=== PATIENT | female | born 1985 | race Caucasian/White ===

== ENCOUNTER 2017-06-07 02:16 | Emergency (ER) | payer SELFPAY ==
[2017-06-07] MEDS ORDERED: Ketorolac Tromethamine 30 MG/ML VIAL ONE (02:36)
[2017-06-07] MEDS ORDERED: Ondansetron HCl/PF 4 MG/2 ML Vial ONE (02:36)
[2017-06-07 03:15] LABS: #Basophils 0.1 thou/uL (0.0-0.2); #Eosinphils 0.3 thou/uL (0.0-0.7); #Lymphocytes 3.7 thou/uL (1.20-3.40); #Neutrophils 9.1 thou/uL (1.40-6.50); %Basophils 0.7 % (0.0-1.0); %Eosinophils 2.2 % (0.0-10.0); %Lymphocytes 25.9 % (21.0-51.0); Hematocrit 44.5 % (36.0-47.0); Mean Platelet Volume 7.2 fL (7.4-10.4); Red Blood Cell (RBC) Count 4.59 mill/uL (4.20-5.40); White Blood Cell (WBC) Count 14.2 thou/uL (4.8-10.8)
[2017-06-07 03:22] LABS: ALT (SGPT) 24 U/L (8-55); AST (SGOT) 11 U/L (5-34); Alkaline Phosphatase 86 U/L (40-150); Anion Gap 12 mmol/L (10-20); BUN (Urea Nitrogen) 19 mg/dL (7.0-18.7); Bilirubin, Total 0.3 mg/dL (0.2-1.2); Calc. Creatinine Clearance 0 mL/min (70-130); Calcium 9.6 mg/dL (7.8-10.44); Carbon Dioxide 21 mmol/L (22-29); Chloride 109 mmol/L (98-107); Estimated GFR-MDRD 75; Globulin 3.1 g/dL (2.4-3.5); Lipase 26 U/L (8-78); Protein, Total 7.2 g/dL (6.0-8.3)
--- NOTE | 2017-06-07 08:05 | CT ---
PRELIMINARY REPORT/[facility]/EMERGENCY AFTER HOURS PROCEDURE: EXAM: CT Abdomen and Pelvis Without Intravenous Contrast EXAM DATE/TIME: Exam ordered 06/07/2017 3:23 AM CLINICAL HISTORY: 32 years old, female; Pain; Abdominal pain; Generalized TECHNIQUE: Axial computed tomography images of the abdomen and pelvis without intravenous contrast. Coronal reformatted images were created and reviewed. COMPARISON: No relevant prior studies available. FINDINGS: Lower thorax: The visualized portions of the lung bases are normal. ABDOMEN: Liver: There are no focal liver lesions present. Gallbladder and bile ducts: Multiple calcified gallstones are present. No ductal dilation. Pancreas: The pancreas is normal. No ductal dilation. Spleen: The spleen is normal. Adrenals: The adrenal glands are normal. Kidneys and ureters: The kidneys are normal. No obstructing stones. No hydronephrosis. Stomach and bowel: The stomach is normal. No obstruction. No mucosal thickening. Appendix: No findings to suggest acute appendicitis. PELVIS: Bladder: The bladder is normal. No stones. Reproductive: The uterus is normal. ABDOMEN and PELVIS: Intraperitoneal space: Normal. No free air. No significant fluid collection. Bones/joints: No acute fracture. No dislocation. Soft tissues: There is a 7.8 cm periumbilical hernia containing inflamed fat. Vasculature: Normal. No abdominal aortic aneurysm. Lymph nodes: Normal. No enlarged lymph nodes. IMPRESSION: 1. There is a 7.8 cm periumbilical hernia containing inflamed fat. 2. Cholelithiasis. Thank you for allowing us to participate in the care of your patient. Dictated and Authenticated by: Justin Dai MD 06/07/2017 4:06 AM Central Time ([place] \T\ [place]) FINAL REPORT EMERGENT AFTER HOURS REPORT CT ABDOMEN AND PELVIS WITHOUT CONTRAST FINDINGS/IMPRESSION: I agree with the findings and impression given in the preliminary report per [facility] physician. 1. Cholelithiasis. 2. Incarcerated umbilical hernia. POS: [facility]
== END 2017-06-07 04:10 | disposition home or self-care (01) ==
LOC: ERS 02:16
DX: K42.9 Umbilical hernia without obstruction or gangrene (principal); B20 Human immunodeficiency virus [HIV] disease
CPT/HCPCS: 36415; 74176; 80053; 83690; 84703; 85025; 96361; 96374; 96375; J1885; J2270; J2405

== ENCOUNTER 2017-07-05 08:56 | Day surgery (SDC) | payer MEDICAID ==
[2017-07-03 10:32] VITALS: BMI 44.8
[2017-07-05] MEDS ORDERED: Ketorolac Tromethamine 30 MG/ML VIAL ONE (09:26)
[2017-07-05] MEDS ORDERED: CEFAZOLIN/Water 2 GM/20 ML SYRINGE ONE (09:26)
[2017-07-05] MEDS ORDERED: Scopolamine 1.5 mg/72 hour Patch ONE (09:52)
[2017-07-05] MEDS ORDERED: Bupivacaine/Epinephrine 0.25% 30 ML VIAL ONE (10:22)
[2017-07-05] MEDS ORDERED: Fentanyl 100 MCG/2 ML VIAL ONE ×4 (10:52→14:08)
[2017-07-05] MEDS ORDERED: Glycopyrrolate 0.2 MG/ML 5 ML SYRINGE ONE (11:28)
[2017-07-05] MEDS ORDERED: Lidocaine 1% PF 5 ML VIAL ONE (11:28)
[2017-07-05] MEDS ORDERED: PHENYLEPHRINE-NS 100 MCG/ML 10 ML SYRINGE ONE (11:28)
[2017-07-05] MEDS ORDERED: Ondansetron HCl/PF 4 MG/2 ML Vial ONE (11:28)
[2017-07-05] MEDS ORDERED: Propofol 200 MG/20 ML VIAL ONE ×2 (11:28)
[2017-07-05] MEDS ORDERED: Dexamethasone 20 MG/5 ML VIAL ONE (11:28)
[2017-07-05] MEDS ORDERED: Promethazine HCl 25 MG/ML VIAL ONE (13:49)
[2017-07-05] MEDS ORDERED: MORPHINE 10 MG/ML SYRINGE ONE (13:56)
[2017-07-05] MEDS ORDERED: Morphine 4 MG/ML VIAL ONE ×2 (13:57→15:38)
[2017-07-05] MEDS ORDERED: Ondansetron HCl/PF 4 MG/2 ML Vial IVP PRN (14:05)
[2017-07-05] MEDS ORDERED: Morphine 4 MG/ML Carpuject SLOW IVP PRN (14:05)
[2017-07-05] MEDS ORDERED: Promethazine HCl 25 MG/ML VIAL IM/IV PRN (14:05)
[2017-07-05] MEDS ORDERED: HYDROcodone/Acetaminophen 5/325 mg Tablet ONE (17:01)
--- NOTE | 2017-07-08 10:16 | OP ---
DATE OF PROCEDURE: 07/05/2017 PREOPERATIVE DIAGNOSES: Umbilical hernia and gallstones. POSTOPERATIVE DIAGNOSES: Umbilical hernia and gallstones with multiple ventral incisional hernias. HISTORY: Ms. Guerrero is a 32-year-old woman with a symptomatic umbilical hernia. She was also noted to have gallstones with symptoms of biliary colic. The recommendation was made to proceed with laparoscopic cholecystectomy and umbilical hernia repair. PROCEDURE: After informed consent was obtained and appropriate preoperative antibiotics were administered, the patient was taken to the operating room where she was placed in the supine position and general endotracheal anesthesia was administered. She was prepped and draped in the standard sterile fashion and a circumumbilical incision was made. Dissection was carried down to the hernia sac which was dissected free circumferentially to the level of fascia. This was found to contain incarcerated omentum. The hernia sac was resected and the incarcerated omentum also resected and the stump dunked down into the abdomen. A trocar was placed through the umbilical defect and carbon dioxide gas insufflated to an intra-abdominal pressure of 15, which the patient tolerated well. Local anesthesia was infused to the skin and subcutaneous tissues at the epigastric, right upper quadrant, and right lateral abdominal sites. Trocars were placed under direct vision of the laparoscope and the gallbladder identified. This was slightly white walled, but without significant adhesions. The fundus was grasped and retracted superiorly. The infundibulum was grasped and retracted laterally. The serosa was stripped inferiorly and the cystic duct and artery identified and dissected free and traced to their insertion in the gallbladder. Critical view was obtained and the cystic duct and artery were clipped and divided between clips. The gallbladder was dissected free of the gallbladder bed and placed into an EndoCatch bag and drawn out through the umbilical incision. The umbilical trocar was then replaced and the lower abdomen carefully examined laparoscopically. In addition to the patient's symptomatic umbilical hernia she was noted to have multiple ventral incisional hernias in the lower midline from her scar. There were extensive omental adhesions and it was felt that repairing these would require a large piece of intraabdominal mesh which would be an unacceptably high risk for infection to place concurrently with cholecystectomy. In addition, the patient is morbidly obese with a BMI of 49 and it was felt that the chance of a durable repair was quite low in this setting and the patient had previously expressed her intentions to pursue bariatric surgery for weight loss. Therefore, the decision was made to repair the umbilical hernia primarily since a Ventralex mesh would not address the other abdominal hernias and could potentially make it more difficult to repair these in the future, especially if the patient develops a mesh infection. Therefore, the umbilical hernia was repaired with interrupted [id number] Ethibond sutures with excellent technical result. The umbilical incision was copiously irrigated and the subcutaneous tissues reapproximated with 3-0 Monocryl sutures. All of the skin incisions were then closed with 4-0 Monocryl sutures and Dermabond dressings were applied. Once the Dermabond was dry, a pressure dressing was placed to the umbilicus. The patient was extubated and taken to the recovery room in good condition. Estimated blood loss was minimal. There were no complications. SPECIMEN: Gallbladder and contents, umbilical hernia sac and incarcerated omentum. MTDD
== END 2017-07-05 17:45 | disposition home or self-care (01) ==
LOC: SDC 08:56
PROVIDERS: ATTEND Surgery
PROC: 0FT44ZZ Resection of Gallbladder, Percutaneous Endoscopic Approach (ICD-10-PCS; principal; 2017-07-05)
PROC: 0WQF0ZZ Repair Abdominal Wall, Open Approach (ICD-10-PCS; principal; 2017-07-05)
DX: K80.10 Calculus of gallbladder with chronic cholecystitis without obstruction (principal); K42.0 Umbilical hernia with obstruction, without gangrene; F17.210 Nicotine dependence, cigarettes, uncomplicated; E66.01 Morbid (severe) obesity due to excess calories; Z68.41 Body mass index [BMI] 40.0-44.9, adult; Z90.49 Acquired absence of other specified parts of digestive tract; Z90.721 Acquired absence of ovaries, unilateral
CPT/HCPCS: 88302; 88304; 96374; J0131; J1100; J1885; J2001; J2270; J2405; J2550; J2704; J3010

== ENCOUNTER 2017-09-19 11:27 | Emergency (ER) | payer MEDICAID, OTHER ==
[2017-09-19] MEDS ORDERED: Ketorolac Tromethamine 30 MG/ML VIAL ONE (13:06)
[2017-09-19] MEDS ORDERED: Acetaminophen 500 MG TAB ONE (13:06)
== END 2017-09-19 13:40 | disposition home or self-care (01) ==
LOC: ERS 11:27
DX: J11.1 Influenza due to unidentified influenza virus with other respiratory manifestations (principal); B20 Human immunodeficiency virus [HIV] disease
CPT/HCPCS: 96372; J1885

== ENCOUNTER 2019-06-24 10:09 | Outpatient (CLI) | payer OTHER ==
[2019-06-24 12:21] LABS: #Eosinphils 0.3 thou/uL (0.0-0.7); #Lymphocytes 2.5 thou/uL (1.20-3.40); #Monocytes 0.6 thou/uL (0.11-0.59); #Neutrophils 11.7 thou/uL (1.40-6.50); %Eosinophils 1.8 % (0.0-10.0); %Lymphocytes 16.6 % (21.0-51.0); %Monocytes 3.7 % (0.0-10.0); %Neutrophils 77.9 % (42.0-75.0); Hemoglobin 14.4 g/dL (12.0-16.0); Mean Corpuscular HGB CONC 34.1 g/dL (32.0-36.0); Mean Corpuscular Hemoglobin 31.4 pg (27.0-31.0); Mean Corpuscular Volume 92.2 fL (78.0-98.0); Mean Platelet Volume 7.4 fL (7.4-10.4); Platelet Count 341 thou/uL (130-400); Red Blood Cell (RBC) Count 4.57 mill/uL (4.20-5.40); White Blood Cell (WBC) Count 15.1 thou/uL (4.8-10.8)
[2019-06-24 12:32] LABS: Anion Gap 15 mmol/L (10-20); BHCG - Serum Negative (NEGATIVE); BUN (Urea Nitrogen) 11 mg/dL (7.0-18.7); Calc. Creatinine Clearance 0 mL/min (70-130); Calcium 9.7 mg/dL (7.8-10.44); Carbon Dioxide 24 mmol/L (22-29); Chloride 106 mmol/L (98-107); Estimated GFR-MDRD 80; Glucose 129 mg/dL (70-105); Potassium 4.1 mmol/L (3.5-5.1); Pregs Control Background? CLEAR/WHITE (CLR/WHITE); Pregs Control Bar Appear? YES (CONTROL BAR); Sodium 141 mmol/L (136-145)
== END 2019-06-24 10:10 | disposition home or self-care (01) ==
LOC: LABBT 10:09
PROVIDERS: ATTEND Surgery
DX: Z01.818 Encounter for other preprocedural examination (principal); K43.9 Ventral hernia without obstruction or gangrene
CPT/HCPCS: 80048; 84703; 85025

== ENCOUNTER 2019-06-26 10:30 | Inpatient (IN) | payer OTHER ==
[2019-06-26] MEDS ORDERED: Esmolol 100 MG/10 ML VIAL ONE (11:01)
[2019-06-26] MEDS ORDERED: Ondansetron PF 4 MG/2 ML Vial ONE ×3 (11:01→18:15)
[2019-06-26] MEDS ORDERED: Glycopyrrolate 0.4 MG/ 2 ML VIAL ONE (11:01)
[2019-06-26] MEDS ORDERED: PROPOFOL 200 MG/20 ML VIAL ONE (11:01)
[2019-06-26] MEDS ORDERED: Succinylcholine Chloride 20 MG/ML 10 ml SYRINGE FS ONE (11:01)
[2019-06-26] MEDS ORDERED: Glycopyrrolate 0.2 MG/ML 5 ML SYRINGE ONE (11:01)
[2019-06-26] MEDS ORDERED: Lidocaine 1% PF 5 ML VIAL ONE (11:01)
[2019-06-26] MEDS ORDERED: Labetalol HCl 100 MG/20 ML VIAL ONE (11:01)
[2019-06-26] MEDS ORDERED: Rocuronium Bromide 10 MG/ML (10ML VIAL) ONE (11:01)
[2019-06-26] MEDS ORDERED: Bupivacaine HCl 0.25%/Epi 0.0005/PF 10 ML VIAL FS ONE (13:00)
[2019-06-26] MEDS ORDERED: Fentanyl 100 MCG/2 ML VIAL ONE ×4 (13:06→18:35)
[2019-06-26] MEDS ORDERED: EPINEPHrine 1 MG/10 ML Abboject SYRINGE ONE (13:35)
[2019-06-26] MEDS ORDERED: Famotidine/PF 20 mg/2ml Vial ONE (13:35)
[2019-06-26] MEDS ORDERED: Scopolamine 1.5 mg/72 hour Patch ONE (13:35)
[2019-06-26] MEDS ORDERED: Midazolam HCl 2 mg/2 ml Vial ONE (13:44)
[2019-06-26] MEDS ORDERED: HYDROmorphone 2 MG/ML VIAL ONE (16:43)
[2019-06-26] MEDS ORDERED: Adenosine 6 MG/2 ML VIAL ONE (17:12)
[2019-06-26] MEDS ORDERED: Promethazine HCl 25 MG/ML VIAL ONE (17:56)
[2019-06-26] MEDS ORDERED: Dexamethasone 4 mg/ml Vial ONE (18:28)
[2019-06-26] MEDS ORDERED: Morphine Sulfate 100 MG in Dextrose 5% in Water 98 ML IV SCH (18:39)
[2019-06-26] MEDS ORDERED: Naloxone HCl 0.4 mg/ml Vial IV PRN (18:39)
[2019-06-26] MEDS ORDERED: Ondansetron PF 4 MG/2 ML Vial IVP PRN (18:39)
[2019-06-26] MEDS ORDERED: Ketorolac Tromethamine 30 MG/ML VIAL IVP PRN (21:11)
[2019-06-26] MEDS ORDERED: Ondansetron PF 4 MG/2 ML Vial SLOW IVP PRN (21:11)
[2019-06-26] MEDS: Sodium Chloride 0.9% 1,000 ML IV SCH (21:15)
[2019-06-27] MEDS: Acetaminophen 1,000 MG in Premix Bag 1 BAG IVPB SCH ×4 (00:09→17:59)
[2019-06-27] MEDS: Ketorolac Tromethamine 30 MG/ML VIAL IVP SCH ×5 (00:10→23:35)
[2019-06-27 02:25] VITALS: BMI 47.2
[2019-06-27] MEDS: Sodium Chloride 0.9% 1,000 ML IV SCH ×2 (05:57→17:59)
[2019-06-27] MEDS: Enoxaparin Sodium 40 MG/0.4 ML SYRINGE SC SCH (08:35)
[2019-06-27] MEDS ORDERED: FLU VACC QS2019-20(6MOS UP)/PF 60 MCG/0.5 ML SYRINGE IM ONE (09:00)
[2019-06-27] MEDS ORDERED: Prevnar 13-Val Conj/PF 0.5 ML SYRINGE IM ONE (09:00)
[2019-06-27] MEDS ORDERED: TRI LINYAH PO SCH (21:00)
[2019-06-27] MEDS ORDERED: TIVICAY 50 MG PO SCH (21:00)
[2019-06-27] MEDS ORDERED: PREZCOBIX PO SCH (21:00)
[2019-06-27] MEDS ORDERED: Acetaminophen 500 MG TAB PO PRN (21:28)
[2019-06-27] MEDS ORDERED: Ibuprofen 600 MG TAB PO PRN (21:28)
[2019-06-27] MEDS ORDERED: traMADol HCl 50 MG TAB PO PRN ×2 (21:28)
[2019-06-27] MEDS ORDERED: Sodium Chloride 0.9% 1,000 ML IV SCH (21:30)
--- NOTE | 2019-06-27 21:54 | PRG ---
DATE OF SERVICE: 06/27/2019 SUBJECTIVE: Stanislaw Guerrero was admitted postoperatively by Dr. Dietz last night for postoperative pain control after laparoscopic incisional hernia repair with mesh. 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 Her pain seemed to be well controlled. She denies having any nausea or vomiting. She has not passed flatus or stool. OBJECTIVE: VITAL SIGNS: Temperature 97.9 degrees, pulse 64, blood pressure 118/79. CARDIAC: Regular rate and rhythm without murmur or gallop. ABDOMEN: Soft, nontender, obese. Diminished bowel sounds. EXTREMITIES: Unremarkable. Surgical wounds look good. LABORATORY DATA: None. ASSESSMENT AND PLAN: Postoperative laparoscopic incisional hernia repair. We will plan to stop her POLICY CHECKER in the morning, change her oral analgesics, and anticipate probable discharge home. Job ID: [id number]
[2019-06-27] MEDS: diphenhydrAMINE 25 MG CAP PO PRN (21:55)
[2019-06-28] MEDS: diphenhydrAMINE 25 MG CAP PO PRN ×2 (01:08→05:39)
[2019-06-28] MEDS: Ketorolac Tromethamine 30 MG/ML VIAL IVP SCH ×2 (05:25→11:13)
[2019-06-28] MEDS: Enoxaparin Sodium 40 MG/0.4 ML SYRINGE SC SCH (09:49)
[2019-06-28 11:48] VITALS: BP 129/81; TEMP 97.8
[2019-06-28] MEDS ORDERED: HYDROcodone/Acetaminophen 5/325 mg Tablet PO PRN ×2 (13:23)
--- NOTE | 2019-06-28 13:57 | DIS ---
DATE OF ADMISSION: 06/26/2019 DATE OF DISCHARGE: 06/28/2019 DISCHARGE DIAGNOSES: Morbid obesity, incisional hernia, status post laparoscopic mesh repair of incisional hernia, admitted for postoperative pain control. HISTORY: A 34-year-old female, morbidly obese, hospitalization for laparoscopic mesh repair of incisional hernia. The patient did not have financial resources for bariatric surgery. The patient postoperatively had too much pain, was kept here for pain control. She is kept on a WARPER FIXER for 48 hours, which was discontinued. She is now taking hydrocodone for pain. Diet and activity, as tolerated. Avoid lifting more than 25 pounds for 6 weeks. Follow up with Dr. Dietz in 2 to 3 weeks. Resume home medications. [place] 5/325, #30, prescribed 1 to 2 p.o. q.i.d. p.r.n. pain. Motrin OTC 600 mg p.o. q.i.d. p.r.n. pain. Tylenol 1000 mg p.o. q.i.d. p.r.n. pain if not taking [place]. She was initially prescribed Ultram, but she stated this caused urinary retention while hydrocodone did not. Job ID: [id number]
[2019-06-28] MEDS ORDERED: NORGESTIMATE ETHINYL ESTRADIOL PO SCH (21:00)
[2019-06-28] MEDS ORDERED: Darunavir/Cobicistat [Prezcobix 800 Mg-150 Mg Tablet] PO SCH (21:00)
[2019-06-28] MEDS ORDERED: Dolutegravir Sodium [Tivicay] 50 MG PO SCH (21:00)
--- NOTE | 2019-06-29 09:29 | OP ---
DATE OF PROCEDURE: 06/26/2019 PREOPERATIVE DIAGNOSIS: Ventral incisional hernia. POSTOPERATIVE DIAGNOSIS: Ventral incisional hernia. PROCEDURE PERFORMED: Laparoscopic ventral incisional hernia repair. INDICATIONS FOR SURGERY: Ms. Guerrero is a morbidly obese woman with a large ventral incisional hernia from previous . Recommendation was made to proceed with laparoscopic versus open repair. She does have bowel within the hernia, which is not fully reducible, so open repair is a definite possibility. DESCRIPTION OF PROCEDURE: After informed consent was obtained, and appropriate preoperative antibiotics were administered, the patient was taken to the operating room, where she was placed in the supine position and general endotracheal anesthesia was administered. A Fermin catheter was placed to decompress the bladder, and she was prepped and draped in standard sterile fashion. Local anesthesia was infused through skin and subcutaneous tissues at the umbilicus and dissection was carried down to the umbilical hernia, which was dissected free circumferentially down to the fascial defect, which was quite small. The hernia sac was opened and a trocar placed into the abdominal cavity under direct vision. Carbon dioxide gas was insufflated to an intraabdominal pressure of 15, which the patient tolerated well. The abdominal cavity was carefully examined. There were omental and bowel adhesions inferior to the umbilicus, but none in the upper and lateral abdomen. Two dissecting ports were placed on the far left lateral abdomen under direct laparoscopic vision and the camera moved to this position. The omental adhesions were taken down through the avascular plane. The bowel in the hernia sac was visible and was able to be reduced into the abdominal cavity through a combination of external pressure and gentle retraction internally. There were some adhesions still holding the bowel up to the edge of the hernia sac, which were divided using the LigaSure well away from the wall of the actual intestine. One of these lesions was quite dense and was adhesive band to the mesentery of the bowel. The other adhesions were filmy. Once the small intestine was completely mobilized out of the hernia sac, remaining omental adhesions were pulled down out of the hernia as much as possible and then divided using LigaSure. There was fluid in the hernia sac, but the bowel and omentum all appeared completely viable. As the dissection was carried out to the lateral edge of the hernia sac, the descending colon was noted to be adherent to the edge, but not within the sac. This was fairly tightly adherent to the edge of the hernia sac but part of left in contact with the colon to avoid any injury to the underlying bowel. Once the entire hernia sac was cleared of all adhesions, the actual defect was measured internally and was 6 cm from the edge side to side and 8 cm from the bottom of the ventral incisional hernia to the top of the recurrent umbilical hernia. A 15 x 20 cm piece of mesh was selected Ethibond sutures were placed superiorly, inferiorly, and at each edge, and the GraNee needle was used to secure the mesh at 4 quadrants widely overlapping the edges of the hernia. Additional trocars were placed in the right lateral position to allow position of the SecureStrap, and the right inferior lateral trocar had to be moved more laterally since the internal opening was under the edge of where the mesh needed to be placed. In addition, the umbilical trocar was removed after the mesh was placed through this trocar and the fascial defect at that level closed with a GraNee needle to prevent insufflation. Once the mesh was secured at 4 quadrants with GraNee needles to the fascia. The device was used to secure the mesh to the fascia circumferentially and this obtained good coverage of the hernia defect. The trocars were removed and hemostasis verified, and the final trocar was then used to desufflate the abdomen. Following which, the skin incisions were closed with 4-0 subcuticular Monocryl sutures. Fluff dressing and an abdominal binder were used to elevate and compress the hernia sac and the pannus, and the patient was extubated and taken to Recovery in good condition. ESTIMATED BLOOD LOSS: Minimal. COMPLICATIONS: There were no complications. SPECIMENS: There were no specimens. Job ID: [id number]
== END 2019-06-28 14:46 | disposition home or self-care (01) | DRG 354 ==
LOC: SDC 10:30 → SURG A 20:51
PROVIDERS: ADMIT Surgery; ATTEND Surgery
PROC: 0WUF4JZ Supplement Abdominal Wall with Synthetic Substitute, Percutaneous Endoscopic Approach (ICD-10-PCS; principal; 2019-06-26)
DX: K43.2 Incisional hernia without obstruction or gangrene (principal); Z68.42 Body mass index [BMI] 45.0-49.9, adult; K43.9 Ventral hernia without obstruction or gangrene; E66.01 Morbid (severe) obesity due to excess calories; R33.9 Retention of urine, unspecified; Z21 Asymptomatic human immunodeficiency virus [HIV] infection status
CPT/HCPCS: 80048; 84703; 85025; C1781; J0131; J0153; J0171; J0690; J1100; J1170; J1650; J1885; J2001; J2250; J2270; J2405; J2550; J2704; J3010; J7070; Q0163; S0028

== ENCOUNTER 2025-05-07 19:33 | Emergency (ER) | payer OTHER ==
[2025-05-07 20:15] LABS: #Basophils Less than 0.03 10x3/uL (0.0-0.2); #Eosinophils 0.19 10x3/uL (0.0-0.7); #Monocytes 0.56 10x3/uL (0.11-0.59); #Neutrophils 3.87 10x3/uL (1.40-6.50); %Basophils 0.3 % (0.0-1.0); %Eosinophils 2.6 % (0.0-10.0); %Lymphocytes 35.1 % (21.0-51.0); %Monocytes 7.8 % (0.0-10.0); %Neutrophils 53.6 % (42.0-75.0); Hematocrit 42.9 % (36.0-47.0); Hemoglobin 13.9 g/dL (12.0-16.0); Mean Corpuscular Hemoglobin 28.8 pg (27.0-31.0); Mean Corpuscular Volume 88.8 fL (78.0-98.0); Platelet Count 173 10x3/uL (130-400); Red Blood Cell (RBC) Count 4.83 mill/uL (4.20-5.40); White Blood Cell (WBC) Count 7.21 10x3/uL (4.8-10.8)
[2025-05-07 20:39] LABS: BHCG - Serum Negative (NEGATIVE); Pregs Control Background? CLEAR/WHITE (CLR/WHITE); Pregs Control Bar Appear? YES (CONTROL BAR)
[2025-05-07 20:42] LABS: ALT (SGPT) 24 U/L (Less than 34); AST (SGOT) 21 U/L (11-34); Albumin 4.2 g/dL (3.1-4.5); Alkaline Phosphatase 69 U/L (40-110); Anion Gap 9 mmol/L (10-20); BUN (Urea Nitrogen) 13 mg/dL (7.0-18.7); Bilirubin, Total 1.2 mg/dL (0.3-1.2); Calc. Creatinine Clearance 0 mL/min (70-130); Calcium 9.3 mg/dL (7.8-10.44); Carbon Dioxide 23 mmol/L (22-29); Chloride 112 mmol/L (98-107); Globulin 3.6 g/dL (2.4-3.5); Glucose 112 mg/dL (70-105); Potassium 3.3 mmol/L (3.5-5.1); Sodium 141 mmol/L (136-145)
[2025-05-07] MEDS ORDERED: predniSONE 20 MG TAB ONE (20:44)
[2025-05-07 22:04] LABS: Bacteria/HPF None Seen HPF (None Seen); CAUTI Indications for Culture Acute Hematuria; Glucose, Urine (Dipstick) Normal (Negative); Leukocyte Negative Leu/uL (Negative); Protein, Urine (Dipstick) Negative (Neg-Trace); RBC/HPF 0-3 HPF (0-3); Specific Gravity, Urine 1.029 (1.002-1.036)
[2025-05-07 22:05] LABS: Urine Culture Reflex No No
[2025-05-08 11:31] LABS: Syphilis Antibody Index 0.02 S/CO (<1.00 Non-Reactive)
== END 2025-05-07 22:13 | disposition home or self-care (01) ==
LOC: ERS 19:33
DX: K43.9 Ventral hernia without obstruction or gangrene (principal); L25.9 Unspecified contact dermatitis, unspecified cause; F17.210 Nicotine dependence, cigarettes, uncomplicated
CPT/HCPCS: 36415; 74177; 80053; 81001; 83605; 84703; 85025; 86141; 86780; 87081; 87430; J7512